=== PATIENT | male | born 1955 | race Caucasian/White ===

== ENCOUNTER 2017-02-10 16:40 | Emergency (ER) | payer MEDICARE, MEDICAID ==
[~2017-02-10] VITALS: Ht 170.2 cm; Wt 81.6 kg
--- NOTE | 2017-02-10 16:57 | NUR ---
Dr Jin at the bedside for eval and exam.
[2017-02-10] MEDS ORDERED: IV NORMAL SALINE 1000 ML BAG IV ONE (17:00)
[2017-02-10 18:05] LABS: BASOPHILS % (AUTO) 0.8 % (0.0-2.0); EOSINOPHILS # (AUTO) 0.1 K/uL (0.0-0.7); EOSINOPHILS % (AUTO) 2.4 % (0.0-7.0); HEMATOCRIT 43.5 % (40-50); HEMOGLOBIN 14.6 G/DL (14.0-18.0); LYMPHOCYTES # (AUTO) 1.9 K/UL (0.8-4.8); LYMPHOCYTES % (AUTO) 33.3 % (20.5-51.5); MEAN CORPUSCULAR HEMOGLOBIN 28.4 UUG (27.0-31.0); MEAN CORPUSCULAR HGB CONC 34 g/dL (32.0-37.0); MEAN CORPUSCULAR VOLUME 84.8 FL (82.0-92.0); MONOCYTES # (AUTO) 0.6 K/UL (0.1-1.30); MONOCYTES % (AUTO) 10.4 % (0.0-11.0); NEUTROPHILS # (AUTO) 3.1 K/UL (1.8-8.9); NEUTROPHILS % (AUTO) 53.1 % (38.5-71.5); PLATELET COUNT (AUTO) 154 K/UL (150-450); RED BLOOD CELL COUNT(AUTO) 5.13 MIL/UL (4.7-6.1); WHITE BLOOD COUNT (AUTO) 5.7 K/UL (4.0-11.2)
[2017-02-10 18:16] LABS: CARBON DIOXIDE 24 mmol/L (21-32); CHLORIDE 105 mmol/L (98-107); CREATININE 0.8 mg/dL (0.6-1.3); GLUCOSE 126 mg/dL (74-106); POTASSIUM 3.4 mmol/L (3.5-5.1); UREA NITROGEN, BLOOD 7 mg/dL (7-18)
[2017-02-10 18:29] LABS: THYROID STIMULATING HORMONE 0.715 mIU/mL (0.358-3.740)
[2017-02-10 18:30] LABS: ETHANOL 253 MG/DL (0-0)
[2017-02-10 18:32] LABS: ALANINE AMINOTRANSFERASE 32 U/L (16-63); ALKALINE PHOSPHATASE 59 U/L (50-136); ASPARTATE AMINOTRANSFERASE 35 U/L (15-37); BILIRUBIN,DIRECT 0.2 mg/dL (0.0-0.2); BILIRUBIN,TOTAL 0.8 mg/dL (0.2-1.0); TOTAL PROTEIN, SERUM 7.5 g/dL (6.4-8.2)
[2017-02-10 18:33] LABS: ACETAMINOPHEN < 2.0 ug/mL (10-30)
[2017-02-10] MEDS ORDERED: ALPR0.5T8 PO (19:21)
[2017-02-10] MEDS ORDERED: TAMS0.4C34 PO (19:21)
[2017-02-10 19:48] LABS: *BILIRUBIN,URIN NEGATIVE (NEGATIVE); *BLOOD, URINE NEGATIVE (NEGATIVE); *CLARITY,URINE CLEAR (CLEAR); *COLOR,URINE YELLOW (YELLOW); *KETONES,URINE NEGATIVE (NEGATIVE); *PROTEIN,URINE NEGATIVE (NEGATIVE); *UROBILINOGEN,URINE 0.2 E.U./dl (NORMAL); LEUKOCYTE ESTERASE ,URINE NEGATIVE (NEGATIVE); NITRITE, URINE NEGATIVE (NEGATIVE); UGLUCOSE NEGATIVE (NEGATIVE)
[2017-02-10 20:00] LABS: *AMPHETAMINE, URINE NEGATIVE (NEGATIVE); *BARBITURATE, URINE NEGATIVE (NEGATIVE); *CANNABINOID, URINE NEGATIVE (NEGATIVE); *COCCAINE, URINE NEGATIVE (NEGATIVE); *OPIATE, URINE NEGATIVE (NEGATIVE); *PHENCYCLIDINE SCREEN,URINE NEGATIVE (NEGATIVE)
[2017-02-10 20:03] LABS: WBC,URINE NONE SEEN /HPF (0-3)
--- NOTE | 2017-02-10 22:00 | NUR ---
Patient out of bed urinating on self and attempting to find a restroom. Patient assisted to restroom, bedding and clothing changed.
--- NOTE | 2017-02-10 22:35 | NUR ---
Patient asking for "something to sleep." Education provided regarding him being awake for the PET evaluation, patient understanding of instructions.
--- NOTE | 2017-02-10 23:00 | NUR ---
Call placed to [facility] for PET evaluation, ETA 60 min.
--- NOTE | 2017-02-11 00:45 | NUR ---
Rosana at bedside for PET evaluation.
--- NOTE | 2017-02-11 01:45 | NUR ---
Patient discharged to home in stable conditon. Written and verbal after care instructions given. Patient verbalizes understanding of instructions.
== END 2017-02-11 01:46 | disposition home or self-care (01) ==
LOC: ER 16:40
DX: F10.129 Alcohol abuse with intoxication, unspecified (principal); F13.10 Sedative, hypnotic or anxiolytic abuse, uncomplicated; R40.4 Transient alteration of awareness
CPT/HCPCS: 36415; 70450; 71010; 80048; 80076; 80307; 81001; 82140; 84443; 84484; 85025; 85730; 87086; 93005; 96360; 99285; A4663; G0480 ×3; G0481; J7030; 70030-TC

== ENCOUNTER 2024-02-14 12:35 | Inpatient (IN) | payer MEDICARE ==
[~2024-02-14] VITALS: Ht 170.2 cm; Wt 71.8 kg
[~2024-02-14 12:35] MED LIST: ALPR0.5T8 PO; TAMS0.4C34 PO
[2024-02-14 20:00] VITALS: BP 127/60; TEMP 98.4; O2SAT 93
[2024-02-14] MEDS ORDERED: PIPE3.3714 IV (21:59)
[2024-02-14] MEDS ORDERED: CELE200C PO (21:59)
[2024-02-14] MEDS ORDERED: GABA100C PO (21:59)
[2024-02-14] MEDS ORDERED: ONDA4AMP IJ (22:02)
[2024-02-14] MEDS ORDERED: DEXT50DI5 IV (22:08)
[2024-02-14] MEDS: HYDROCODONE/APAP 10-325 MG TABLET PO PRN (22:09)
[2024-02-14] MEDS: ALPRAZOLAM 0.5 MG TABLET PO ONE (23:33)
[2024-02-15 06:41] VITALS: BP 127/60; TEMP 99.5; O2SAT 94
[2024-02-15] MEDS ORDERED: ALPRAZOLAM 0.5 MG TABLET PO SCH (12:15)
[2024-02-15] MEDS ORDERED: PIPERACILLIN SODIUM/TAZOBACTAM 3.375 G in IV DEXTROSE 5% 50 ML IV SCH (14:00)
[2024-02-15] MEDS: GABAPENTIN 100 MG CAPSULE PO SCH (14:40)
[2024-02-15] MEDS: PIPERACILLIN SODIUM/TAZOBACTAM 3.375 G in IV DEXTROSE 5% 100 ML IV SCH (15:36)
[2024-02-15 16:00] VITALS: BP 121/67; TEMP 97.2; O2SAT 97
[2024-02-15 19:53] VITALS: BP 130/64; TEMP 98.3; O2SAT 96
[2024-02-15] MEDS: CELECOXIB 200 MG CAPSULE PO SCH (20:20)
[2024-02-16 05:50] VITALS: BP 131/68; TEMP 98.2; O2SAT 95
[2024-02-16 06:31] LABS: BASOPHILS # (AUTO) 0.1 K/UL (0.0-0.2); BASOPHILS % (AUTO) 0.8 % (0.0-2.0); EOSINOPHILS # (AUTO) 0.5 K/uL (0.0-0.7); EOSINOPHILS % (AUTO) 4.9 % (0.0-7.0); HEMATOCRIT 29.3 % (36.7-47.1); HEMOGLOBIN 9.5 g/dL (12.5-16.3); LYMPHOCYTES # (AUTO) 0.8 K/uL (0.8-4.8); LYMPHOCYTES % (AUTO) 8.1 % (20.5-51.5); MEAN CORPUSCULAR HEMOGLOBIN 28.6 uug (23.8-33.4); MEAN CORPUSCULAR HGB CONC 32 g/dL (32.5-36.3); MEAN CORPUSCULAR VOLUME 88.4 fL (73.0-96.2); MONOCYTES # (AUTO) 1.1 K/uL (0.1-1.30); MONOCYTES % (AUTO) 11.5 % (0.0-11.0); NEUTROPHILS # (AUTO) 7.2 K/uL (1.8-8.9); NEUTROPHILS % (AUTO) 74.7 % (38.5-71.5); PLATELET COUNT (AUTO) 324 K/uL (152-348); RED BLOOD CELL COUNT(AUTO) 3.31 MIL/uL (4.06-5.63); RED CELL DISTRIBUTION WIDTH 16.2 % (12.1-16.2); WHITE BLOOD COUNT (AUTO) 9.6 K/uL (3.6-10.2)
[2024-02-16 06:36] LABS: DIFFERENTIAL COMMENT 1
[2024-02-16 07:22] LABS: THYROID STIMULATING HORMONE 1.389 mIU/mL (0.358-3.740)
[2024-02-16 08:00] VITALS: BP 117/50; TEMP 98.5; O2SAT 94
[2024-02-16 08:09] LABS: ALBUMIN 1.9 g/dL (3.4-5.0); BILIRUBIN,TOTAL 0.8 mg/dL (0.2-1.0); CALCIUM 9.2 mg/dL (8.5-10.1); CREATININE 0.7 mg/dL (0.6-1.3); PHOSPHOROUS 3.7 mg/dL (2.5-4.9); POTASSIUM 3.5 mmol/L (3.5-5.1); TOTAL PROTEIN, SERUM 6.8 g/dL (6.4-8.2)
[2024-02-16] MEDS: POTASSIUM CHLORIDE 20 MEQ TAB.PRT.SR PO ONE (10:33)
[2024-02-16 15:05] VITALS: BP 140/68; TEMP 98.4; O2SAT 94
[2024-02-16 20:51] VITALS: BP 128/66; TEMP 98.3; O2SAT 96
[2024-02-16] MEDS: ALPRAZOLAM 0.5 MG TABLET PO PRN (21:01)
[2024-02-17 07:03] VITALS: BP 123/64; TEMP 98; O2SAT 92
[2024-02-17 09:00] VITALS: BP 132/67; TEMP 98; O2SAT 95
[2024-02-17 11:36] VITALS: BP 145/63; TEMP 98.3; O2SAT 95
[2024-02-17 12:00] VITALS: BP 145/63; TEMP 98.3; O2SAT 95
[2024-02-17 15:37] VITALS: BP 114/61; TEMP 97.8; O2SAT 95
[2024-02-17 20:00] VITALS: TEMP 98.1
[2024-02-18 04:00] VITALS: TEMP 98.3
[2024-02-18 11:00] VITALS: BP 139/58; TEMP 98.3; O2SAT 96
[2024-02-18 16:16] VITALS: BP 126/65; TEMP 98; O2SAT 97
[2024-02-18 20:00] VITALS: BP 136/73; TEMP 98.5; O2SAT 96
[2024-02-19 05:59] VITALS: BP 126/59; TEMP 98; O2SAT 97
[2024-02-19 15:11] VITALS: BP 152/67; TEMP 97.8; O2SAT 98
[2024-02-19 20:56] VITALS: BP 120/64; TEMP 98.6; O2SAT 94
[2024-02-20 06:13] VITALS: BP 132/69; TEMP 98.5; O2SAT 95
[2024-02-20 20:00] VITALS: BP 127/68; TEMP 98; O2SAT 94
[2024-02-20 20:42] VITALS: BP 127/68; TEMP 98; O2SAT 94
[2024-02-21 06:29] VITALS: BP 117/65; TEMP 98.2; O2SAT 94
[2024-02-21 08:07] LABS: CALCIUM 9.7 mg/dL (8.5-10.1); CREATININE 0.8 mg/dL (0.6-1.3); POTASSIUM 4.8 mmol/L (3.5-5.1)
[2024-02-21 11:50] VITALS: BP 118/62; TEMP 98.1; O2SAT 95
[2024-02-21 12:03] VITALS: BP 118/62; TEMP 98.1; O2SAT 95
[2024-02-21] MEDS: ENSURE WITH FIBER 237 ML LIQUID (CHOCOLATE) PO SCH (13:55)
[2024-02-21 16:00] VITALS: BP 116/71; TEMP 98.3; O2SAT 99
[2024-02-21 20:00] VITALS: BP 127/63; TEMP 99.2; O2SAT 95
[2024-02-22 06:00] VITALS: BP 117/64; TEMP 97.9; O2SAT 97
[2024-02-22 06:40] VITALS: BP 129/57; TEMP 97.8; O2SAT 97
[2024-02-22 08:00] VITALS: BP 118/74; TEMP 97.4; O2SAT 95
[2024-02-22] MEDS: ACETAMINOPHEN 325 MG TABLET PO PRN (12:43)
[2024-02-22 16:55] VITALS: BP 136/73; TEMP 98; O2SAT 96
[2024-02-22] MEDS ORDERED: MIRALAX 17 GM POWD.PACK PO PRN (18:15)
[2024-02-22 20:00] VITALS: BP 118/74; TEMP 97.4; O2SAT 95
[2024-02-22] MEDS: DOCUSATE SODIUM 100 MG CAPSULE PO SCH (20:22)
[2024-02-22] MEDS: HYDROCODONE/APAP 5-325MG TABLET PO PRN (22:34)
[2024-02-23 06:23] VITALS: BP 130/67; TEMP 98.8; O2SAT 96
[2024-02-23] MEDS: PROTEIN SUPPLEMENT (PROSTAT) 30 ML LIQUID PO SCH (08:04)
[2024-02-23] MEDS: MULTIVITAMINS,THERAPEUTIC TABLET PO SCH (08:32)
[2024-02-23] MEDS: FAMOTIDINE 20 MG TABLET PO SCH (08:32)
[2024-02-23] MEDS: ONDANSETRON HCL 4 MG TABLET PO ONE (11:30)
[2024-02-23 12:04] VITALS: BP 117/69; TEMP 98.9; O2SAT 98
[2024-02-23] MEDS: BISMUTH SUBSALICYLATE 262 MG/15 ML UDC PO ONE (12:32)
== END 2024-02-23 14:03 | disposition home or self-care (01) | DRG 949 ==
PROVIDERS: ADMIT Physical Medicine & Rehabilitation Pain Medicine; ATTEND Physical Medicine & Rehabilitation Pain Medicine
DX: Z48.815 Encounter for surgical aftercare following surgery on the digestive system (principal); E22.2 Syndrome of inappropriate secretion of antidiuretic hormone; K91.89 Other postprocedural complications and disorders of digestive system; K56.7 Ileus, unspecified; R53.1 Weakness; Z90.49 Acquired absence of other specified parts of digestive tract; Z85.46 Personal history of malignant neoplasm of prostate; I25.10 Atherosclerotic heart disease of native coronary artery without angina pectoris; Z85.47 Personal history of malignant neoplasm of testis; Z85.038 Personal history of other malignant neoplasm of large intestine; D63.8 Anemia in other chronic diseases classified elsewhere; Z95.1 Presence of aortocoronary bypass graft; Z87.891 Personal history of nicotine dependence; E11.42 Type 2 diabetes mellitus with diabetic polyneuropathy; E78.5 Hyperlipidemia, unspecified; E88.09 Other disorders of plasma-protein metabolism, not elsewhere classified; D64.89 Other specified anemias
CPT/HCPCS: 36415; 83735; 84100; 84443; 85025; 97535-GO-CO; J2543; Q0162